=== PATIENT | male | born 1970 | race American Indian/Alaskan Native ===

== ENCOUNTER 2020-01-26 15:04 | Emergency (ER) | payer SELFPAY ==
[2020-01-26] MEDS ORDERED: cloNIDine 0.2 MG TAB PO ONE (17:05)
--- NOTE | 2020-01-26 17:12 | Emergency Department Report ---
ED General Adult HPI - General Chief complaint: Headache Stated complaint: HBP Time Seen by Provider: 01/26/20 16:52 Source: patient Mode of arrival: Ambulatory Limitations: No Limitations - History of Present Illness Initial comments: 50-year-old -[place] male with a past medical history of hypertension presents to the emergency room for 2-day history of high headache. Patient states that he was having tooth pain and took some amoxicillin for possible infection and took aspirin prior to the narcotics that he took today. Patient reports that he has some dizziness and some blurred vision denies any nausea vomiting. Patient reports his last dose of Roxicet was 11 AM and headache started to intensify approximately 2 PM. Patient reports that the pain is mostly behind his eyes. Patient reports that he has stopped taking his blood pressure medicine about a year ago secondary to no insurance. Patient presents to the emergency room with a blood pressure of 210/112. Patient reports that his pain is 10 out of 10. Onset/Timin -: days(s) Location: head Severity scale (0 -10): 8 Quality: other (Throbbing) Consistency: constant Improves with: medication Worsens with: none Associated Symptoms: headaches. denies: confusion, cough, fever/chills, nausea/vomiting, seizure, shortness of breath, syncope, weakness Treatments Prior to Arrival: other (Roxicet) - Related Data Previous Rx's Medication Instructions Recorded Last Taken Type amLODIPine [Norvasc] 5 mg PO DAILY #30 tab 09/04/16 Unknown Rx amLODIPine 10 mg PO DAILY #60 tab 01/26/20 Unknown Rx Allergies Allergy/AdvReac Type Severity Reaction Status Date / Time No Known Allergies Allergy Verified 01/26/20 15:07 ED Review of Systems ROS: Stated complaint: HBP Other details as noted in HPI Comment: All other systems reviewed and negative Neurological: headache ED Past Medical Hx - Past Medical History Hx Hypertension: Yes - Surgical History Past Surgical History?: No - Social History Smoking Status: Current Every Day Smoker Substance Use Type: None - Medications Home Medications: Home Medications Medication Instructions Recorded Confirmed Last Taken Type amLODIPine [Norvasc] 5 mg PO DAILY #30 tab 09/04/16 Unknown Rx amLODIPine 10 mg PO DAILY #60 tab 01/26/20 Unknown Rx ED Physical Exam - General Limitations: No Limitations General appearance: alert, in distress (Pacing in the room holding his head) - Head Head exam: Present: atraumatic, normocephalic - Eye Eye exam: Present: normal appearance - ENT ENT exam: Present: mucous membranes moist - Neck Neck exam: Present: normal inspection, full ROM - Neurological Exam Neurological exam: Present: alert, oriented X3, normal gait - Expanded Neurological Exam Expanded Patient oriented to: Present: place, time Speech: Present: fluid speech Cranial nerves: EOM's Intact: Normal, Gag Reflex: Normal, Tongue Deviation: Normal, Nystagmus: Normal, Facial Sensation: Normal, Facial Palsy with Forehead Movement: Normal, Facial Palsy without Forehead Movement: Normal Cerebellar function: Finger to Nose: Normal, Heel to [place]: Normal, Romberg: N ormal Upper motor neuron: Chon Neglect: Normal, Pronator Drift: Normal, Sensory Extinction: Normal Sensory exam: Upper Extremity Light Touch: Normal, Upper Extremity Pin Prick: Normal, Upper Extremity Temperature: Normal, UE 2 Point Discrimination: Normal, Lower Extremity Light Touch: Normal, Lower Extremity Pin Prick: Normal, Lower Extremity Temperature: Normal, LE 2 Point Discrimination: Normal Motor strength exam: RUE: 4, LUE: 4, RLE: 4, LLE: 4 Best Eye Response ([place]): (4) open spontaneously Best Motor Response ([place]): (6) obeys commands Best Verbal Response ([place]): (5) oriented [place] Total: 15 - Psychiatric Psychiatric exam: Present: normal affect, normal mood - Skin Skin exam: Present: warm, dry, intact, normal color. Absent: rash ED Course Vital Signs 01/26/20 01/26/20 01/26/20 15:11 17:17 18:15 Temperature 97.8 F Pulse Rate 69 90 69 Respiratory 18 16 Rate Blood Pressure 226/124 Blood Pressure 210/112 218/120 [Left] O2 Sat by Pulse 100 98 Oximetry ED Medical Decision Making - Lab Data Result diagrams: 01/26/20 17:19 - Radiology Data Radiology results: report reviewed Print Report Referring Physician:SELINA SANTIAGOPatient Name:NATALIYA CAMPOSPatient ID:[id number] of :[id number]:MaleAccession:[id number] Date:2610-16-94Cjvquz Status:Finalized Findings [address] [address] Cat Scan Report Signed Patient: NATALIYA CAMPOS MR# : [id number] : 1970 Acct:[id number] Age/Sex: 50 / M ADM Date: 01/26/20 Loc: ED Attending Dr: Ordering Physician: DEMETRIA STRAUSS Date of Service: 01/26/20 Procedure(s): CT head/brain wo con Accession Number(s): [id number] cc: DEMETRIA STRAUSS CT BRAIN: 01/26/2020 INDICATION / CLINICAL INFORMATION: Headache with elevated blood pressure and dizzines. COMPARISON: 09/04/2016 FINDINGS: BRAIN/INTRACRANIAL STRUCTURES: Unenhanced CT images of the brain dated straight no evidence of acute intracranial abnormality. Ventricles and sulci are normal in size and shape. There is no evidence of hemorrhage or mass. There are no abnormal extra-axial fluid collections. EXTRACRANIAL STRUCTURES: Unremarkable. IMPRESSION: No acute abnormality. There is been no significant change when compared to 09/04/2016. All CT scans at this location are performed using dose reduction to ALARA by means of automated exposure control. Signer Name: Sal Rosa MD Signed: 01/26/2020 6:07 PM Workstation Name: [id number] Transcribed By: AO Dictated By: Sal Rosa MD Electronically Authenticated By: Sal Rosa MD Signed Date/Time: 01/26/201806 DD/ 04 TD/TT: - Medical Decision Making 50-year-old -[place] male with a past medical history of hypertension presents to the emergency room for 2-day history of high headache. Patient states that he was having tooth pain and took some amoxicillin for possible infection and took aspirin prior to the narcotics that he took today. Patient reports that he has some dizziness and some blurred vision denies any nausea vomiting. Patient reports his last dose of Roxicet was 11 AM and headache started to intensify approximately 2 PM. Patient reports that the pain is mostly behind his eyes. Patient reports that he has stopped taking his blood pressure medicine about a year ago secondary to no insurance. Patient presents to the emergency room with a blood pressure of 210/112. Patient reports that his pain is 10 out of 10. CBC BMP, CT of head, IV secure for possible hypotensive after giving p.o. cl onidine 0.2 mg. Critical care attestation.: If time is entered above; I have spent that time in minutes in the direct care of this critically ill patient, excluding procedure time. ED Disposition Clinical Impression: Hypertensive urgency Disposition: DC-01 TO HOME OR SELFCARE Is pt being admited?: No Does the pt Need Aspirin: No Condition: Stable Instructions: Hypertension (ED), Chronic Hypertension (ED) Additional Instructions: Please take blood pressure medications as prescribed. Is very important for you to follow-up with a primary care provider I have listed 1 below for your convenience. Prescriptions: amLODIPine 10 mg PO DAILY #60 tab Referrals: PRIMARY MD MICHELLE [Primary Care Provider] - 3-5 Days JACOB CLARKE MD [Staff Physician] - 3-5 Days Forms: Work/School Release Form(ED)
--- NOTE | 2020-01-26 18:11 | Cat Scan Report ---
CT BRAIN: 01/26/2020 INDICATION / CLINICAL INFORMATION: Headache with elevated blood pressure and dizzines. COMPARISON: 09/04/2016 FINDINGS: BRAIN/INTRACRANIAL STRUCTURES: Unenhanced CT images of the brain dated straight no evidence of acute intracranial abnormality. Ventricles and sulci are normal in size and shape. There is no evidence of hemorrhage or mass. There are no abnormal extra-axial fluid collections. EXTRACRANIAL STRUCTURES: Unremarkable. IMPRESSION: No acute abnormality. There is been no significant change when compared to 09/04/2016. All CT scans at this location are performed using dose reduction to ALARA by means of automated expos ure control. Signer Name: Sal Rosa MD Signed: 01/26/2020 6:07 PM Workstation Name: [id number]
[2020-01-26 18:28] LABS: Basophils # (Auto) 0.1 K/mm3 (0.0-0.1); Basophils % (Auto) 0.6 % (0.0-1.8); Eosinophils # (Auto) 0.1 K/mm3 (0.0-0.4); Hematocrit 46.5 % (35.5-45.6); Hemoglobin 16.2 gm/dl (11.8-15.2); Lymphocytes # (Auto) 3.7 K/mm3 (1.2-5.4); Lymphocytes % (Auto) 24.2 % (13.4-35.0); Mean Corpuscular HGB Conc 35 % (32-34); Mean Corpuscular Volume 96 fl (84-94); Monocytes % (Auto) 6.3 % (0.0-7.3); Platelet Count 263 K/mm3 (140-440); Red Blood Count 4.83 M/mm3 (3.65-5.03); Red Cell Distribution Width 13.5 % (13.2-15.2)
[2020-01-26] MEDS ORDERED: hydrALAZINE 25 MG TAB PO ONE (18:33)
[2020-01-26 18:48] LABS: BUN/Creatinine Ratio 11; Blood Urea Nitrogen 10 mg/dL (9-20); Hemolysis Index 82
[2020-01-26 19:21] VITALS: BP 201/126
== END 2020-01-26 19:30 | disposition home or self-care (01) ==
LOC: ED 15:04
DX: I16.0 Hypertensive urgency (principal); F17.200 Nicotine dependence, unspecified, uncomplicated; Z79.899 Other long term (current) drug therapy
CPT/HCPCS: 36415; 70450; 80048; 85025